=== PATIENT | male | born 1990 | race Two or more races ===

== ENCOUNTER 2022-05-12 18:06 | Emergency (ER) | payer OTHER ==
[~2022-05-12] VITALS: Ht 167.6 cm; Wt 69.0 kg
[2022-05-12 18:58] VITALS: BP 123/88
[2022-05-12] MEDS ORDERED: OMEP-434 PO (18:59)
[2022-05-12] MEDS ORDERED: ONDA-144 PO (18:59)
[2022-05-12] MEDS ORDERED: ONDANSETRON ODT 4 MG TAB PO ONE (19:00)
[2022-05-12] MEDS ORDERED: FAMOTIDINE 20 MG TAB PO ONE (19:00)
== END 2022-05-12 19:40 | disposition home or self-care (01) ==
LOC: ER 18:08
DX: K29.70 Gastritis, unspecified, without bleeding (principal); Z79.899 Other long term (current) drug therapy
CPT/HCPCS: 99283; Q0162